=== PATIENT | male | born 1965 | race Caucasian/White ===

== ENCOUNTER 2023-11-12 10:30 | Emergency (ER) | payer OTHER, SELFPAY ==
[2023-11-12 10:34] VITALS: BP 148/90
--- NOTE | 2023-11-12 11:16 | ED.GENMED ---
History of Present Illness
<Ellen Finnegan MD, Resident - Last Filed: 11/12/23 12:40>
General
Chief Complaint: DVT/Possible Blood Clot
Time Seen by Provider: 11/12/23 10:48
History of Present Illness
History of Present Illness:
58 year old male presented to ER today complaining from his left calf pain and swelling. He reported that he started to have pain and swelling on last Saturday and he felt his ca;s was warm. He reported that his pain gradually decreased but he still
feels that pain. The patient also reported that he was prescribed Apixaban 5 mg last year due Atrial flutter but he started to take it on last Saturday once daily.
PMH: HT, Anxiety
PSH: Gallbladder removed in 2003
Current medications
Apixaban 5 mg once daily
Amlodipine 4 mg once daily
Lisinopril 40 mg once daily
Metoprolol 50 mg
Sertraline 50 mg
If applicable-neuro sx onset
Date of onset of symptoms: 11/12/23
Past History
<Ellen Finnegan MD, Resident - Last Filed: 11/12/23 12:40>
Past History
ED Past Medical History: Arrthythmia, HTN and Other (Atrial flutter )
ED Past Surgical History: Cholecystectomy
Social History
Tobacco: Non-smoker
Personal:
Living: with family
Phy Exam
<Ellen Finnegan MD, Resident - Last Filed: 11/12/23 12:40>
General Physical Exam
General Presentation: no apparent distress
General Skin: warm
General Habitus: obese
General Mental: alert
General Hydration: appears well hydrated
Cardiovascular Exam
Cardiovascular Exam: other (bilateral lower extremity edema.)
Pulmonary Exam
Pulmonary Exam: lungs clear, no respiratory distress, chest non tender, no crackles, no stridor and no wheezing
Neurological Exam
Neurological Exam: alert, oriented x3, CN II-XII intact, no motor deficits and no sensory deficits
Musculoskeletal Exam
Musculoskeletal Exam: edema
Course
<Ellen Finnegan MD, Resident - Last Filed: 11/12/23 12:40>
Orders/Labs/Results
Orders:
Orders
11/12/23 11:15
Periph Venous Lwr Ext Left US [US Periph Venous LOWER Ext LT] Urgent
Comment:
Reason For Exam: swelling
Vital Signs
Initial and Last Documented VS:
Initial Vital Signs
Temp Pulse Resp BP Pulse Ox
98.3 F 74 18 148/90 95
11/12/23 10:34 11/12/23 10:34 11/12/23 10:34 11/12/23 10:34 11/12/23 10:34
Last Documented Vital Signs
Temp Pulse Resp BP Pulse Ox
98.3 F 82 18 135/85 95
11/12/23 10:34 11/12/23 11:31 11/12/23 11:31 11/12/23 11:31 11/12/23 11:31
<Jan George, DO - Last Filed: 11/12/23 12:27>
Orders/Labs/Results
Orders:
Orders
11/12/23 11:15
Periph Venous Lwr Ext Left US [US Periph Venous LOWER Ext LT] Urgent
Comment:
Reason For Exam: swelling
Vital Signs
Initial and Last Documented VS:
Initial Vital Signs
Temp Pulse Resp BP Pulse Ox
98.3 F 74 18 148/90 95
11/12/23 10:34 11/12/23 10:34 11/12/23 10:34 11/12/23 10:34 11/12/23 10:34
Last Documented Vital Signs
Temp Pulse Resp BP Pulse Ox
98.3 F 82 18 135/85 95
11/12/23 10:34 11/12/23 11:31 11/12/23 11:31 11/12/23 11:31 11/12/23 11:31
<Ellen Finnegan MD, Resident - Last Filed: 11/12/23 12:40>
MDM/Problems Addressed
Differential Diagnosis Includes:
DVT, Chronic venous insufficiency, CHF related lower extremity edema, cellulitis
MDM/Problems Addressed:
Peripheral lower extremity Doppler US was ordered to check a possible DVT:The LEFT common femoral, femoral, popliteal, peroneal, and posterior tibial veins are patent. There is no sonographic evidence for deep venous thrombosis. No infection signs
on bilateral extremities. The patient was recommended to take his apixaban regularly daily basis and was recommended to see his PCP for follow up for his blood pressure.
<Jan George, - Last Filed: 11/12/23 12:27>
*Radiology
Radiology exam reviewed: radiology read reviewed (Ultrasound left lower extremity no DVT)
*Critical Care Note
Total Time (30-74mins, 75-104mins- exclusive of procedures): Not Applicable
<Jan George, DO - Last Filed: 11/12/23 12:27>
Patient Management
Social determinants of health affecting care: Living situation
Escalation/DeEscalation of care consider admission/obs:
Admit not indicated
ED Attending Note
<Ellen Finnegan MD, Resident - Last Filed: 11/12/23 12:40>
-
Portions of this chart may have been created with voice recognition software.� Occasional wrong word or��sound alike� substitutions may have occurred due to the inherent limitations of voice recognition software.
<Jan George DO - Last Filed: 11/12/23 12:27>
ED Attending Note
Patient seen and examined by attending physician: Yes
I performed a history and physical exam of patient and discussed management with resident, I reviewed resident's note and agree with documented findings and plan of care.: Yes
ED Attending Note:
I have reviewed and agree with history treatment plan by Dr. Ellen Finnegan. My exam revealed 58-year-old male with mild tenderness palpation left gastrocnemius. Suspect strain. Ultrasound negative for DVT. Stable for discharge.
Discharge Plan
Departure
Patient Disposition: Home (Routine Discharge)
Date of Disposition: 11/12/23
Time of Disposition: 12:28
Patient with high blood pressure during this ER visit?: Yes
Condition: Good
Discharge Problem:
Pain of left calf
Instructions: BLOOD PRESSURE, Musculoskeletal Pain
Prescriptions:
No Action
calcium carbonate [Tums Extra Strength Smoothies] 300 mg (750 mg) Tablet,Chewable
600 mg PO DAILYPRN PRN (Reason: reflux)
famotidine [Pepcid] 20 mg Tablet
20 mg PO DAILYPRN PRN (Reason: reflux)
lisinopril 40 mg Tablet
40 mg PO DAILY
metoprolol tartrate 50 MG tablet
25 mg PO BID
metoprolol tartrate 50 mg tablet
50 mg PO BID Qty: 60 0RF
Referrals:
NONE,* [Family Provider] -
Activity Restrictions/Additional Instructions:
Return for any concerns.
Interventions
Interventions:
*Risk Screen - Suicide Last Done: 11/12/23 11:24
*General Assessment Last Done: 11/12/23 11:24
*Neglect/Abuse Screening Last Done: 11/12/23 11:24
ED- Cardiac Assessment Last Done: 11/12/23 11:24
ED- Pulmonary Assessment Last Done: 11/12/23 11:24
ED-Skin Assessment Last Done: 11/12/23 11:24
Discharge Date and Time
Print Language: URDU
[2023-11-12 11:20] VITALS: BMI 55.0
[2023-11-12 11:31] VITALS: BP 135/85
[2023-11-12 12:37] VITALS: BP 162/102
== END 2023-11-12 12:58 | disposition home or self-care (01) ==
LOC: EMR 10:30
PROVIDERS: EMERGENCY PHYSICIAN Emergency Medicine
DX: M79.662 Pain in left lower leg (principal); R60.0 Localized edema; I10 Essential (primary) hypertension; F41.9 Anxiety disorder, unspecified; I48.92 Unspecified atrial flutter; E66.9 Obesity, unspecified; Z79.899 Other long term (current) drug therapy; Z79.01 Long term (current) use of anticoagulants; Z90.49 Acquired absence of other specified parts of digestive tract
CPT/HCPCS: 99284; 93971

== ENCOUNTER 2024-08-29 05:29 | Emergency (ER) | payer OTHER, SELFPAY ==
[2024-08-29 05:36] VITALS: BP 168/103
[2024-08-29 06:15] VITALS: BMI 54.1
[2024-08-29 06:19] VITALS: BP 142/92
[2024-08-29 07:23] LABS: % Basophils 0.4 % (0-2); % Eosinophils 2.2 % (0-6); % Immature Granulocytes 0.3 % (0-0.5); % Lymphocytes 14.5 % (20.5-51.1); % Monocytes 5.4 % (1.7-9.3); % Neutrophils 77.2 % (42.2-75.2); Absolute Eosinophils 0.2 10^3/uL (0-0.7); Absolute Monocytes 0.4 10^3/uL (0.1-0.6); Absolute Neutrophils 5.3 10^3/uL (1.4-6.5); Hematocrit 44.1 % (39.0-52.0); Hemoglobin 15.2 g/dL (13.0-18.0); Mean Corp Hgb Conc. 34.5 g/dL (33.0-37.0); Mean Corpuscular Hgb 28.3 pg (27.0-31.0); Mean Corpuscular Volume 82.1 fL (80.0-94.0); Mean Platelet Volume 8.3 fL (7.4-10.4); Nucleated Red Blood Cells % 0 % (-); Platelet Count 194 10^3/uL (130-400); Red Blood Cell Count 5.37 10^6/uL (4.70-6.10); Red Cell Dist. Width 13.8 % (11.5-14.5); White Blood Cell Count 6.8 10^3/uL (4.8-10.8)
--- NOTE | 2024-08-29 07:25 | ED.GENMED ---
History of Present Illness
General
Chief Complaint: Abdominal Pain
Source: patient
Exam Limitations: none
Time Seen by Provider: 08/29/24 07:05
History of Present Illness
History of Present Illness:
59-year-old male with history of atrial fibrillation on Eliquis, hypertension and morbid obesity presents complaining of 2 weeks of worsening right sided abdominal pain. The pain seems to be on the lower aspect. It is made worse with motion. He
notes a burning sensation to the right mid abdomen. Denies a rash fever vomiting. He notes his bowels have been moving but somewhat softer than usual. No discoloration. No urinary symptoms. The pain does not radiate to the back. Has a prior
history of cholecystectomy.
Past History
Past History
ED Past Medical History: Arrthythmia, HTN and Other (Atrial flutter )
ED Past Surgical History: Cholecystectomy
Social History
Tobacco: Non-smoker
Personal:
Living: with family
Phy Exam
Physical Exam
Physical Exam:
General: Well-appearing obese male no acute respiratory distress
HEENT: Normocephalic atraumatic
Heart: Regular rate and rhythm
Lungs: Clear no wheeze
Abdomen obese, tender to the right mid and lower abdomen no guarding or rebound
Skin. Skin of the abdominal wall was examined there is no erythema. No bulging
Extremities: Mild pitting edema bilateral lower extremity
Course
Orders/Labs/Results
Orders:
Orders
08/29/24 07:14
Complete Blood Count/With Diff Urgent
Comprehensive Metabolic Panel Urgent
Lipase Urgent
08/29/24 07:24
CT Abd/pelvis W Iv Cont Urgent
Comment:
Reason For Exam: rlq pain
08/29/24 07:27
Urinalysis Reflex To Culture Urgent
Abnormal Lab Results
08/29/24
07:14
Absolute Lymphs (auto) 1.0 L 10^3/uL
(1.2-3.4)
Neutrophils % 77.2 H %
(42.2-75.2)
Lymphocytes % 14.5 L %
(20.5-51.1)
Glucose 136 H mg/dl
(70-99)
Total Bilirubin 1.4 H mg/dl
(0.2-1.3)
08/29/24 07:14
08/29/24 07:14
Vital Signs
Initial and Last Documented VS:
Initial Vital Signs
Temp Pulse Resp BP Pulse Ox
98.6 F 84 26 168/103 97
08/29/24 05:36 08/29/24 05:36 08/29/24 05:36 08/29/24 05:36 08/29/24 05:36
Last Documented Vital Signs
Temp Pulse Resp BP Pulse Ox
98.6 F 93 13 142/92 97
08/29/24 05:36 08/29/24 06:45 08/29/24 06:45 08/29/24 06:19 08/29/24 06:45
MDM/Problems Addressed
Differential Diagnosis Includes:
Abdominal pain. Consider appendicitis versus constipation versus hernia versus intramuscular hematoma
Check labs. Urinalysis ordered. CT pending
*Critical Care Note
Total Time (30-74mins, 75-104mins- exclusive of procedures): Not Applicable
Update Note
Update Note:
CT negative for acute finding. Labs reviewed without significant finding. I suspect abdominal wall strain. Patient is on anticoagulants and cannot take anti-inflammatories. Advise continuation of Tylenol, Lidoderm patches and will prescribe
muscle relaxers. No indication for admission
ED Attending Note
-
Portions of this chart may have been created with voice recognition software.� Occasional wrong word or��sound alike� substitutions may have occurred due to the inherent limitations of voice recognition software.
Discharge Plan
Departure
Patient Disposition: Home (Routine Discharge)
Date of Disposition: 08/29/24
Time of Disposition: 09:33
Patient with high blood pressure during this ER visit?: No
Discharge Problem:
Abdominal wall strain
Instructions: Abdominal Pain
Prescriptions:
New
cyclobenzaprine 10 mg tablet
10 mg PO TID PRN (Reason: spasm) Qty: 14 0RF
No Action
calcium carbonate [Tums Extra Strength Smoothies] 300 mg (750 mg) Tablet,Chewable
600 mg PO DAILYPRN PRN (Reason: reflux)
famotidine [Pepcid] 20 mg Tablet
20 mg PO DAILYPRN PRN (Reason: reflux)
lisinopril 40 mg Tablet
40 mg PO DAILY
metoprolol tartrate 50 MG tablet
25 mg PO BID
metoprolol tartrate 50 mg tablet
50 mg PO BID Qty: 60 0RF
Referrals:
UNKNOWN - PT DOES,NOT KNOW [Family Provider]
Activity Restrictions/Additional Instructions:
Rest. Continue with Tylenol for pain. Use Lidoderm patches for pain relief. You can also use muscle relaxers for spasm peer return if worse otherwise follow-up with your doctor
Interventions
Interventions:
*Risk Screen - Suicide Last Done: 08/29/24 05:36
*General Assessment Last Done: 08/29/24 06:15
*Neglect/Abuse Screening Last Done: 08/29/24 06:15
*ED- Fall Risk Assessment Last Done: 08/29/24 06:15
*ED COVID-19 Vaccine History Last Done: 08/29/24 06:15
FD-Eathti-Infczloaab Assessment Last Done: 08/29/24 06:15
Discharge Date and Time
Print Language: TANZANIAN
[2024-08-29 07:38] LABS: ALT (SGPT) 31 U/L (0-50); AST (SGOT) 30 U/L (17-59); Albumin 4.2 g/dl (3.5-5.0); Alkaline Phosphatase 51 U/L (38-126); Blood Urea Nitrogen 9 mg/dl (9-20); Calcium 9.3 mg/dl (8.4-10.2); Carbon Dioxide 27 mmol/L (22-30); Chloride 105 mmol/L (98-107); Estimated Creatinine Clearance > 125 ml/min; Glucose 136 mg/dl (70-99); Lipase 75 U/L (23-300); Potassium 4.3 mmol/L (3.5-5.1); Sodium 140 mmol/L (135-145); Total Bilirubin 1.4 mg/dl (0.2-1.3); Total Protein 7.1 g/dl (6.3-8.2); eGFR > 60.00
[2024-08-29 08:30] VITALS: BP 162/95
[2024-08-29 09:00] VITALS: BP 152/85
[2024-08-29 10:28] LABS: Urine Albumin Negative (Neg - Trace); Urine Bilirubin Negative (Negative); Urine Character Clear (Clear); Urine Color Yellow; Urine Glucose Negative (Negative); Urine Ketone 2+ (Negative); Urine Leukocyte Negative (Negative); Urine Nitrite Negative (Negative); Urine Occult Blood Negative (Negative); Urine Specific Gravity 1.005 (<1.030); Urine Urobilinogen Negative (Neg - 1+)
== END 2024-08-29 09:45 | disposition home or self-care (01) ==
LOC: EMR 05:29
PROVIDERS: Physician Assistant; EMERGENCY PHYSICIAN Student in an Organized Health Care Education/Training Program
DX: S39.011A Strain of muscle, fascia and tendon of abdomen, initial encounter (principal); X58.XXXA Exposure to other specified factors, initial encounter; I48.91 Unspecified atrial fibrillation; E66.9 Obesity, unspecified; I10 Essential (primary) hypertension; Z79.01 Long term (current) use of anticoagulants; Z90.49 Acquired absence of other specified parts of digestive tract
CPT/HCPCS: 99284; 74177; 80053; 81003; 83690; 85025; Q9967

== ENCOUNTER 2024-10-26 15:09 | Emergency (ER) | payer OTHER, SELFPAY ==
[2024-10-26 15:21] VITALS: BP 171/114
[2024-10-26 15:55] LABS: Hematocrit 45.3 % (39.0-52.0); Hemoglobin 15.7 g/dL (13.0-18.0); Mean Corp Hgb Conc. 34.7 g/dL (33.0-37.0); Mean Corpuscular Volume 82.5 fL (80.0-94.0); Nucleated Red Blood Cells % 0 % (-); Platelet Count 173 10^3/uL (130-400); Red Cell Dist. Width 13.9 % (11.5-14.5)
[2024-10-26 16:04] LABS: ALT (SGPT) 25 U/L (0-50); AST (SGOT) 28 U/L (17-59); Albumin 4.5 g/dl (3.5-5.0); Alkaline Phosphatase 66 U/L (38-126); Blood Urea Nitrogen 15 mg/dl (9-20); Calcium 9.2 mg/dl (8.4-10.2); Carbon Dioxide 28 mmol/L (22-30); Chloride 103 mmol/L (98-107); Glucose 136 mg/dl (70-99); Potassium 4.1 mmol/L (3.5-5.1); Sodium 139 mmol/L (135-145); Total Protein 7.4 g/dl (6.3-8.2); eGFR > 60.00
--- NOTE | 2024-10-26 19:05 | ED.GENMED ---
History of Present Illness
General
Chief Complaint: Nose Bleed
Time Seen by Provider: 10/26/24 18:35
History of Present Illness
History of Present Illness:
59-year-old male with history of atrial flutter on Eliquis presents to the emergency department for evaluation of intermittent nosebleeds for the past 2 days but persistent throughout the day today. Predominantly right nare. He did take his
Eliquis this morning
Past History
Past History
ED Past Medical History: Arrthythmia, HTN and Other (Atrial flutter )
ED Past Surgical History: Cholecystectomy
Social History
Tobacco: Non-smoker
Personal:
Living: with family
Review of Systems
Review of Systems
Allergies reviewed?: Yes
All Other Systems: ROS reviewed and negative except as documented in HPI and ROS
Phy Exam
Physical Exam
Physical Exam:
GEN: Well appearing, NAD, WDWN
HEENT: Oral mucosa moist, no scleral icterus, copious active bleeding from the right nare without obvious visualized source, evidence for oropharyngeal bleeding as well
Cardiac: Regular rate
Lung: No respiratory distress, no tachypnea
MSK: No gross deformity or injuries
Skin: Good color, no pallor or jaundice, no rashes
Neuro: AO x3, moves all extremities freely
Psych: Calm, cooperative
Course
Orders/Labs/Results
Orders:
Orders
10/26/24 15:39
Complete Blood Count/With Diff Urgent
Comprehensive Metabolic Panel Urgent
10/26/24 19:44
Tranexamic Acid 1,000 mg .ROUTE .STK-MED ONE
Abnormal Lab Results
10/26/24
15:39
Absolute Neuts (auto) 8.2 H 10^3/uL
(1.4-6.5)
Neutrophils % 80.1 H %
(42.2-75.2)
Lymphocytes % 12.4 L %
(20.5-51.1)
Glucose 136 H mg/dl
(70-99)
10/26/24 15:39
10/26/24 15:39
Vital Signs
Initial and Last Documented VS:
Initial Vital Signs
Temp Pulse Resp BP Pulse Ox
98.3 F 82 16 171/114 98
10/26/24 15:21 10/26/24 15:21 10/26/24 15:21 10/26/24 15:21 10/26/24 15:21
Last Documented Vital Signs
Temp Pulse Resp BP Pulse Ox
98.3 F 95 18 134/85 94
10/26/24 15:21 10/26/24 22:18 10/26/24 22:18 10/26/24 22:18 10/26/24 22:18
Procedures
Nosebleed
Drug treatment: Lidocaine, Epinephrine and Tranexamic Acid
Treatment: local pressure applied, Merocel packing, Vaseline guaze and Posterior balloon
Post treatment bleeding: still some oozing
Additional information:
Multiple attempts with anterior packing followed by posterior packing followed by anterior/posterior Merisel double pack with bacitracin and tranexamic acid installation
MDM/Problems Addressed
MDM/Problems Addressed:
Prolonged course of treatment for epistaxis with numerous attempts at anterior and posterior packing ultimately we placed 8 cm Merisel sponges x 2 infused with tranexamic acid and coated with bacitracin. This provided adequate hemostasis. He will
hold his Eliquis and follow-up with ENT as an outpatient
*Pulse Oximetry
SaO2: 98
Oxygen Mode of Delivery: Room air
Patient hypoxic: no
*Critical Care Note
Total Time (30-74mins, 75-104mins- exclusive of procedures): Not Applicable
ED Attending Note
-
Portions of this chart may have been created with voice recognition software.� Occasional wrong word or��sound alike� substitutions may have occurred due to the inherent limitations of voice recognition software.
Discharge Plan
Departure
Patient Disposition: Home (Routine Discharge)
Date of Disposition: 10/26/24
Time of Disposition: 22:29
Patient with high blood pressure during this ER visit?: No
Discharge Problem:
Epistaxis
Instructions: Nosebleeds (DC)
Prescriptions:
No Action
calcium carbonate [Tums Extra Strength Smoothies] 300 mg (750 mg) Tablet,Chewable
600 mg PO DAILYPRN PRN (Reason: reflux)
famotidine [Pepcid] 20 mg Tablet
20 mg PO DAILYPRN PRN (Reason: reflux)
lisinopril 40 mg Tablet
40 mg PO DAILY
metoprolol tartrate 50 MG tablet
25 mg PO BID
metoprolol tartrate 50 mg tablet
50 mg PO BID Qty: 60 0RF
cyclobenzaprine 10 mg tablet
10 mg PO TID PRN (Reason: spasm) Qty: 14 0RF
Referrals:
Keaton Pretty MD [Active, Otology] - Follow up in 2-3 days
Activity Restrictions/Additional Instructions:
Do not take your Eliquis for the next 5 doses. If you are scheduled to see ENT on morning, do not take your Eliquis this day either
Interventions
Interventions:
*Risk Screen - Suicide Last Done: 10/26/24 15:21
*General Assessment Last Done: 10/26/24 19:30
*Neglect/Abuse Screening Last Done: 10/26/24 15:21
*ED COVID-19 Vaccine History Last Done: 10/26/24 19:30
*Nursing Disposition Last Done: 10/26/24 23:02
ED-EENT Assessment Last Done: 10/26/24 19:30
Discharge Date and Time
Discharge Date/Time: 10/26/24 23:02
Print Language: TURKISH
[2024-10-26 20:00] VITALS: BP 157/95
[2024-10-26 22:18] VITALS: BP 134/85
== END 2024-10-26 23:02 | disposition home or self-care (01) ==
LOC: EMR 15:09
PROVIDERS: Emergency Medicine; EMERGENCY PHYSICIAN Emergency Medicine
DX: R04.0 Epistaxis (principal); I10 Essential (primary) hypertension; I48.92 Unspecified atrial flutter; Z79.01 Long term (current) use of anticoagulants; Z90.49 Acquired absence of other specified parts of digestive tract
CPT/HCPCS: 30901; 99283; 80053; 85025